=== PATIENT | female | born 1990 | race Caucasian/White ===

== ENCOUNTER 2023-11-15 12:15 | Emergency (ER) | payer SELFPAY ==
[~2023-11-15] VITALS: Ht 152.4 cm; Wt 83.5 kg
[2023-11-15 12:39] VITALS: BP 117/66; PULSE 86; RESP 18; TEMP 98.8; O2SAT 98
[2023-11-15] MEDS ORDERED: KETOROLAC 30 MG/ML VIAL IM ONE (13:05)
[2023-11-15 13:41] LABS: BASOPHILS % (AUTO) 0.5 % (0.0-2.0); EOSINOPHILS # (AUTO) 0.2 K/uL (0-0.4); EOSINOPHILS % (AUTO) 3.4 % (0.0-4.0); HEMOGLOBIN 13.2 g/dL (12.0-16.0); LYMPHOCYTES # (AUTO) 1.8 K/uL (2.5-16.5); LYMPHOCYTES % (AUTO) 26.9 % (20.5-51.1); MEAN CORPUSCULAR HEMOGLOBIN 30 pg (27-31); MEAN CORPUSCULAR HGB CONC 34 g/dL (33-37); MEAN CORPUSCULAR VOLUME 89.5 fL (80-94); MONOCYTES # (AUTO) 0.5 K/uL (0.8-1.0); MONOCYTES % (AUTO) 7.8 % (1.7-9.3); NEUTROPHILS # (AUTO) 4.1 K/uL (1.8-7.7); NEUTROPHILS % (AUTO) 61.4 % (42.2-75.2); PLATELET COUNT (AUTO) 295 K/uL (140-450); RED BLOOD CELL COUNT(AUTO) 4.36 MIL/uL (4.20-5.40); WHITE BLOOD COUNT (AUTO) 6.7 K/uL (4.8-10.8)
[2023-11-15 13:50] LABS: ANION GAP 9.6 (8-16); CALCIUM 8.7 mg/dL (8.5-10.1); CARBON DIOXIDE 28.3 mmol/L (21-32); CREATININE 0.7 mg/dL (0.6-1.3); POTASSIUM 3.9 mmol/L (3.5-5.1)
[2023-11-15 14:14] LABS: APPEARANCE,URINE HAZY (CLEAR); BILIRUBIN,URINE NEGATIVE (NEGATIVE); BLOOD, URINE 3+ (NEGATIVE); COLOR,URINE RED (YELLOW); LEUKOCYTE ESTERASE ,URINE TRACE (NEGATIVE); NITRITE, URINE NEGATIVE (NEGATIVE); PROTEIN,URINE 1+ (NEGATIVE); UGLUCOSE NEGATIVE (NEGATIVE); UROBILINOGEN,URINE 0.2 EU/dL (0.2 - 1)
[2023-11-15 14:32] LABS: BACTERIA,URINE FEW /HPF (None Seen); MUCUS,URINE 1+ /LPF (None Seen); RBC,URINE TOO NUMEROUS TO COUN /HPF (0-5); TRICHOMONAS,URINE None Seen /HPF (None Seen); WBC,URINE 16-25 (MOD) /HPF (0-5); YEAST,URINE None Seen /HPF (None Seen)
[2023-11-15] MEDS ORDERED: MEDR10TA PO (14:48)
[2023-11-15] MEDS ORDERED: CEPH-588 PO (14:48)
[2023-11-15] MEDS ORDERED: IBUP-2213 PO (14:48)
[2023-11-15 15:02] VITALS: BP 117/66; PULSE 86; RESP 18; TEMP 98.8; O2SAT 98
== END 2023-11-15 15:03 | disposition home or self-care (01) ==
LOC: MED 12:15
DX: N39.0 Urinary tract infection, site not specified (principal); R10.2 Pelvic and perineal pain; N93.8 Other specified abnormal uterine and vaginal bleeding; Z79.899 Other long term (current) drug therapy
CPT/HCPCS: 36415; 76856; 80048; 81001; 81025; 85025; 87491; 93976; 96372; 99285; J1885; Q0092